=== PATIENT | male | born 1960 | race Caucasian/White ===

== ENCOUNTER 2020-01-11 10:30 | Emergency (ER) | payer OTHER ==
[~2020-01-11] VITALS: Ht 175.3 cm; Wt 82.0 kg
[2020-01-11] MEDS ORDERED: LIDOCAINE-MPF 1%, 5ML ONE (10:36)
[2020-01-11] MEDS ORDERED: TAMS-11 PO (10:40)
[2020-01-11] MEDS ORDERED: SITA1TAB5 PO (10:40)
[2020-01-11] MEDS ORDERED: ASPI-496 PO (10:40)
[2020-01-11] MEDS ORDERED: EMPA10TA PO (10:40)
[2020-01-11] MEDS ORDERED: HYDROmorphone 1 MG/ML, 1ML INJ ONE (10:40)
[2020-01-11] MEDS ORDERED: LISI-167 PO (10:40)
[2020-01-11] MEDS ORDERED: ATOR-2 PO (10:40)
[2020-01-11] MEDS ORDERED: ONDANSETRON 2MG/ML, 2ML ONE (10:41)
[2020-01-11] MEDS ORDERED: CEFAZOLIN PMX 1GM/50ML 50 ML ONE (10:41)
[2020-01-11] MEDS ORDERED: DIPH,PERTUSS(ACELL),TET VAC/PF 0.5 ML IM-VACC ONE ×2 (10:59→11:00)
[2020-01-11] MEDS ORDERED: HYDROmorphone 2 MG/ML, 1ML IVPush ONE (11:00)
[2020-01-11] MEDS ORDERED: ONDANSETRON 2MG/ML, 2ML IVPush ONE (11:00)
[2020-01-11] MEDS ORDERED: CEFAZOLIN PMX 1GM/50ML 50 ML IVPB ONE (11:00)
[2020-01-11] MEDS ORDERED: SODIUM CHLORIDE FLUSH 10ML SYR IVF ONE (11:00)
[2020-01-11] MEDS ORDERED: LIDOCAINE-MPF 1%, 5ML INFIL ONE (11:00)
[2020-01-11] MEDS ORDERED: SODIUM CHLORIDE 0.9% 1,000ML IVBOLUS ONE (11:00)
--- NOTE | 2020-01-11 11:10 | NUR ---
PT CAME IN AFTER PARTIALLY AMPUTATING HIS LEFT THUMB. PT WAS CUTTING A PIECE OF WOOD ON A TABLE SAW AND HIT HIS THUMB. PT BROUGHT THE THUMB IN A BAG OF ICE INTO THE ER WITH HIM. PT THUMB HAS BEEN BLOCKED WITH LIDO AND PT MEDICATED PER AUG. PT REPORTS PAIN IMPROVEMENT.
--- NOTE | 2020-01-11 11:33 | NUR ---
APPENDAGE HAS BEEN WRAPPED IN STERILE CAUSE AND MOISTENED WITH SALINE AND PLACED IN BAG ON ICE.
[2020-01-11 11:50] VITALS: BP 124/64
--- NOTE | 2020-01-11 11:50 | NUR ---
PT CLOTHING REMOVED. PERSONAL BELONGINGS IN PT BAG. WHO FORM COMPLETE. CONSENT FORM IN ROOM WITH PT.
--- NOTE | 2020-01-11 13:20 | NUR ---
PT EDUCATED ON PLAN OF CARE. PT VERBALIZED HIS UNDERSTANDING TO CALL SURGEON AND FOLLOW UP WITH HIM TO GET FINGER TAKING CARE OF
== END 2020-01-11 13:21 | disposition home or self-care (01) ==
LOC: EDBD 10:30 → ED 11:10
DX: Z03.818 Encounter for observation for suspected exposure to other biological agents ruled out (principal); S68.512A Complete traumatic transphalangeal amputation of left thumb, initial encounter; M79.645 Pain in left finger(s); W27.0XXA Contact with workbench tool, initial encounter; Y93.89 Activity, other specified; Y92.098 Other place in other non-institutional residence as the place of occurrence of the external cause; Y99.8 Other external cause status
CPT/HCPCS: 64450; 73130; 87635; 90471; 90715; 96365; 96366; 96375; 99284; J0690; J1170; J2405; J7030

== ENCOUNTER 2020-01-15 05:37 | Day surgery (SDC) | payer OTHER ==
[~2020-01-15] VITALS: Ht 175.3 cm; Wt 81.2 kg
[~2020-01-15 05:37] MED LIST: ASPI-496 PO; ATOR-2 PO; EMPA10TA PO; LISI-167 PO; SITA1TAB5 PO; TAMS-11 PO
[2020-01-15] MEDS ORDERED: LACTATED RINGERS 1,000 ML IV SCH (06:08)
[2020-01-15 06:13] VITALS: BP 145/74
[2020-01-15] MEDS ORDERED: CHLORHEXIDINE 15 ML UDC MM ONE (06:30)
[2020-01-15] MEDS ORDERED: BUPIVACAINE/PF-EPI 0.5% 1:200K ONE (06:48)
[2020-01-15] MEDS ORDERED: LIDOCAINE 1%-EPI 1:100K, 20ML ONE (06:48)
[2020-01-15 06:51] LABS: ALANINE AMINOTRANSFERASE 29 U/L (12-78); ALBUMIN 4.1 g/dL (3.4-5.0); ANION GAP 6 mmol/L (5-15); CALCIUM 8.9 mg/dL (8.5-10.1); CHLORIDE 108 mmol/L (98-107); CREATININE 0.96 mg/dL (0.7-1.3)
[2020-01-15 06:53] LABS: ALKALINE PHOSPHATASE 69 U/L (45-117); BILIRUBIN,TOTAL 0.4 mg/dL (0.2-1.0); TOTAL PROTEIN 7.1 g/dL (6.4-8.2)
[2020-01-15] MEDS ORDERED: FENTANYL PF 100 MCG/2ML ONE (07:06)
[2020-01-15] MEDS ORDERED: LIDOCAINE-MPF 2% ,5ML ONE (07:06)
[2020-01-15] MEDS ORDERED: CEFAZOLIN 1,000 MG ONE (07:06)
[2020-01-15] MEDS ORDERED: PROPOFOL 10 MG/ML, 20ML ONE (07:06)
[2020-01-15] MEDS ORDERED: OXYcodone 5 MG/5 ML ORAL.SOL UDC PO PRN (07:30)
[2020-01-15] MEDS ORDERED: FENTANYL PF 100 MCG/2ML IV PRN (07:30)
[2020-01-15] MEDS ORDERED: ONDANSETRON 2MG/ML, 2ML IVPush PRN (07:30)
== END 2020-01-15 08:55 | disposition home or self-care (01) ==
LOC: OUT 05:37
PROVIDERS: ATTEND Orthopaedic Surgery
DX: S61.011A Laceration without foreign body of right thumb without damage to nail, initial encounter (principal); I25.10 Atherosclerotic heart disease of native coronary artery without angina pectoris; I10 Essential (primary) hypertension; E78.5 Hyperlipidemia, unspecified; N40.0 Benign prostatic hyperplasia without lower urinary tract symptoms; Z79.82 Long term (current) use of aspirin; Z79.891 Long term (current) use of opiate analgesic; Z79.899 Other long term (current) drug therapy; Z95.5 Presence of coronary angioplasty implant and graft; W31.2XXA Contact with powered woodworking and forming machines, initial encounter; Y93.89 Activity, other specified; Y92.89 Other specified places as the place of occurrence of the external cause; Y99.8 Other external cause status
CPT/HCPCS: 15275; 36415; 80053; C9363; J0690; J2704; J3010; J7120; J3490